=== PATIENT | male | born 1990 | race Caucasian/White ===

== ENCOUNTER 2017-10-01 19:11 | Emergency (ER) | payer MEDICAID ==
[~2017-10-01] VITALS: Ht 172.7 cm; Wt 68.0 kg
[2017-10-01 20:32] VITALS: BP 117/65
== END 2017-10-01 20:37 | disposition home or self-care (01) ==
LOC: ER 19:12
DX: K64.4 Residual hemorrhoidal skin tags (principal)
CPT/HCPCS: 99281